=== PATIENT | male | born 1945 | race Caucasian/White ===

== ENCOUNTER 2021-04-12 08:18 | Inpatient (IN) | payer OTHER ==
[~2021-04-12] VITALS: Ht 177.8 cm; Wt 90.7 kg
[2021-04-12] MEDS ORDERED: HYDRALAZINE HCL25 MG (08:24)
[2021-04-12] MEDS ORDERED: GLUMETZA1000 MG (08:24)
[2021-04-12] MEDS ORDERED: BISOPROLOL FUMAR5 MG (08:25)
[2021-04-12] MEDS ORDERED: DIOVAN320 MG (08:25)
[2021-04-12] MEDS ORDERED: SIMVASTATIN80 MG PO (08:25)
[2021-04-13] MEDS ORDERED: BISACODYL5 MG (08:58)
[2021-04-13] MEDS ORDERED: XARELTO10 M1 (08:58)
[2021-04-13] MEDS ORDERED: RESTORIL15 MG (08:58)
[2021-04-13] MEDS ORDERED: DOXAZOSIN MESYLA4 MG (08:58)
[2021-04-13] MEDS ORDERED: CYANOCOBAL1000 MCG/1 (08:59)
[2021-04-13] MEDS ORDERED: JARDIANCE25 MG (08:59)
== END 2021-04-19 17:23 | disposition home or self-care (01) | DRG 469 ==
LOC: ER 08:18 → MEDI 21:35 → SURH 21:59 → MEDI 22:13 → SURG 04-14 13:29 → SURH 04-14 15:40
PROVIDERS: ADMIT Orthopaedic Surgery; ATTEND Orthopaedic Surgery
PROC: BQ2SZZZ Computerized Tomography (CT Scan) of Left Lower Extremity (ICD-10-PCS; 2021-04-12)
PROC: BW28ZZZ Computerized Tomography (CT Scan) of Head (ICD-10-PCS; 2021-04-12)
PROC: B24BZZZ Ultrasonography of Heart with Aorta (ICD-10-PCS; 2021-04-13)
PROC: 0SRB0JZ Replacement of Left Hip Joint with Synthetic Substitute, Open Approach (ICD-10-PCS; principal; 2021-04-13 16:45)
PROC: 30233N1 Transfusion of Nonautologous Red Blood Cells into Peripheral Vein, Percutaneous Approach (ICD-10-PCS; 2021-04-16)
DX: M16.52 Unilateral post-traumatic osteoarthritis, left hip (principal); S72.042A Displaced fracture of base of neck of left femur, initial encounter for closed fracture; D62 Acute posthemorrhagic anemia; R55 Syncope and collapse; I10 Essential (primary) hypertension; E11.9 Type 2 diabetes mellitus without complications; Z79.4 Long term (current) use of insulin; Z20.822 Contact with and (suspected) exposure to COVID-19; Z74.01 Bed confinement status

== ENCOUNTER 2021-07-12 07:22 | Outpatient (CLI) | payer OTHER ==
[~2021-07-12 07:22] MED LIST: BISACODYL5 MG; BISOPROLOL FUMAR5 MG; CYANOCOBAL1000 MCG/1; DIOVAN320 MG; DOXAZOSIN MESYLA4 MG; GLUMETZA1000 MG; HYDRALAZINE HCL25 MG; JARDIANCE25 MG; RESTORIL15 MG; SIMVASTATIN80 MG PO; XARELTO10 M1
== END 2021-07-12 07:24 | disposition home or self-care (01) ==
LOC: RAD 07:22
PROVIDERS: ATTEND Orthopaedic Surgery
DX: M25.562 Pain in left knee (principal)

== ENCOUNTER 2022-11-29 08:04 | Outpatient (CLI) | payer OTHER ==
[2022-11-29 10:11] LABS: ALBUMIN 3.6 gm/dL (3.4-5.0); BILIRUBIN TOTAL 0.52 mg/dL (0.3-1.2); CALCIUM 8.8 mg/dL (8.5-10.1); CREATININE SERUM 0.91 mg/dL (0.70-1.30); GLOBULINA 3.4 G/DL (2.4-3.5); POTASSIUM 4.68 mEq/L (3.5-5.1)
== END 2022-11-29 08:07 | disposition home or self-care (01) ==
LOC: LAB 08:04
PROVIDERS: ATTEND Orthopaedic Surgery
DX: E55.9 Vitamin D deficiency, unspecified (principal); M85.9 Disorder of bone density and structure, unspecified; E56.1 Deficiency of vitamin K; E88.9 Metabolic disorder, unspecified; E21.3 Hyperparathyroidism, unspecified; M81.8 Other osteoporosis without current pathological fracture

== ENCOUNTER → 2023-04-24 08:43 | Outpatient (CLI) | payer OTHER ==
[2023-04-24 10:35] LABS: ALBUMIN 3.6 gm/dL (3.4-5.0); BILIRUBIN TOTAL 0.57 mg/dL (0.3-1.2); CREATININE SERUM 0.94 mg/dL (0.70-1.30); GFR 77.82; GLOBULINA 3.2 G/DL (2.4-3.5); MAGNESIUM 2.1 mg/dL (1.8-2.4); PHOSPHOROUS 2.8 mg/dL (2.5-4.9); POTASSIUM 4.24 mEq/L (3.5-5.1); TOTAL PROTEIN 6.8 gm/dL (6.4-8.2)
== END | disposition home or self-care (01) ==
LOC: LAB 08:43
PROVIDERS: ATTEND Orthopaedic Surgery
DX: E55.9 Vitamin D deficiency, unspecified (principal); M85.9 Disorder of bone density and structure, unspecified; E56.1 Deficiency of vitamin K; E21.3 Hyperparathyroidism, unspecified; M81.8 Other osteoporosis without current pathological fracture

== ENCOUNTER 2023-04-24 09:09 | Outpatient (CLI) | payer OTHER | END 2023-04-24 09:13 | disposition home or self-care (01) | LOC: RAD 09:09 | PROVIDERS: ATTEND Orthopaedic Surgery | DX: Z96.642 Presence of left artificial hip joint (principal) ==

== ENCOUNTER 2024-04-29 08:12 | Outpatient (CLI) | payer OTHER | END 2024-04-29 08:13 | disposition home or self-care (01) | LOC: LAB 08:12 | PROVIDERS: ATTEND Orthopaedic Surgery | DX: E55.9 Vitamin D deficiency, unspecified (principal); M85.9 Disorder of bone density and structure, unspecified; E56.1 Deficiency of vitamin K ==

== ENCOUNTER 2024-04-29 08:53 | Outpatient (CLI) | payer OTHER | END 2024-04-29 08:55 | disposition home or self-care (01) | LOC: RAD 08:53 | PROVIDERS: ATTEND Orthopaedic Surgery | DX: Z96.642 Presence of left artificial hip joint (principal) ==